=== PATIENT | female | born 1995 | race Two or more races ===

== ENCOUNTER → 2019-05-07 | Emergency (ER) | payer OTHER ==
[~2019-05-07] VITALS: Ht 165.1 cm; Wt 102.1 kg
== END | disposition home or self-care (01) ==
LOC: ER 00:36
DX: J31.2 Chronic pharyngitis (principal)

== ENCOUNTER 2019-10-06 19:29 | Emergency (ER) | payer OTHER ==
[~2019-10-06] VITALS: Ht 165.1 cm; Wt 92.5 kg
== END 2019-10-06 22:41 | disposition home or self-care (01) ==
LOC: ER 19:29
DX: M25.572 Pain in left ankle and joints of left foot (principal); M25.562 Pain in left knee